=== PATIENT | male | born 1960 | race Caucasian/White ===

== ENCOUNTER 2021-04-30 17:02 | Emergency (ER) | payer BC ==
[2021-04-30 17:11] VITALS: BP 120/80; PULSE 94; RESP 17; TEMP 97.8
[2021-04-30] MEDS ORDERED: methylPREDNISolone SOD SUCCI 125 MG/2 ML VIAL IM STA (18:23)
--- NOTE | 2021-04-30 18:52 | ED ---
Allergic Reaction HPI - General Chief complaint: Allergic Reaction Stated complaint: bee sting Time Seen by Provider: 04/30/21 18:13 Source: patient, RN notes reviewed Mode of arrival: ambulatory Limitations: no limitations - History of Present Illness Initial Comments: Patient is a 60-year-old male presents to emergency department with a bee sting to the left lower leg. He notes that he's not sure if he is ALLERGIC but he did swell up and started getting hives up his legs. He notes that he did take 59 g Benadryl at home and symptoms have improved since arrival. He notes that the itching and swelling and hives have gone down. He was a well-appearing 60-year-old male in no apparent distress or pain. He denied any other symptoms or complaints. He denied any shortness of breath difficulty breathing throat tightness. - Related Data Allergies Allergy/AdvReac Type Severity Reaction Status Date / Time bee venom protein (honey bee) Allergy Rash/Hives Verified 04/30/21 17:11 Review of Systems ROS Statement: Those systems with pertinent positive or pertinent negative responses have been documented in the HPI. ROS Other: All systems not noted in ROS Statement are negative. Past Medical History Past Medical History: Hyperlipidemia, Hypertension History of Any Multi-Drug Resistant Organisms: None Reported Past Surgical History: Hernia Repair Past Psychological History: No Psychological Hx Reported Smoking Status: Never smoker Past Alcohol Use History: Rare Past Drug Use History: None Reported General Exam Limitations: no limitations General appearance: alert, in no apparent distress Head exam: Present: atraumatic, normocephalic, normal inspection Eye exam: Present: normal appearance, PERRL, EOMI. Absent: scleral icterus, conjunctival injection, periorbital swelling Neck exam: Present: normal inspection Respiratory exam: Present: normal lung sounds bilaterally. Absent: respiratory distress, wheezes, rales, rhonchi, stridor Cardiovascular Exam: Present: regular rate, normal rhythm, normal heart sounds. Absent: systolic murmur, diastolic murmur, rubs, gallop, clicks Extremities exam: Present: normal inspection, full ROM, normal capillary refill. Absent: tenderness, pedal edema, joint swelling, calf tenderness Neurological exam: Present: alert, oriented X3 Psychiatric exam: Present: normal affect, normal mood Skin exam: Present: warm, dry, intact, normal color, urticaria (Bilateral lower extremities.). Absent: rash Course Vital Signs 04/30/21 17:07 Temperature 97.8 F Pulse Rate 94 Respiratory 17 Rate Blood Pressure 120/80 O2 Sat by Pulse 100 Oximetry Medical Decision Making - Medical Decision Making 60-year-old male with a bee sting to left lower extremity. Patient admits that he took Benadryl at home prior to arrival. 125 mg of Solu-Medrol ordered. he was informed that he should talk to his primary care about potentially getting a prescription for EpiPen. Case discussed with Dr. Ashford, patient can discharge home with follow-up to primary care. Disposition Clinical Impression: Allergic reaction, Bee sting Disposition: HOME SELF-CARE Condition: Stable Instructions (If sedation given, give patient instructions): Insect Bite or Sting (ED) Additional Instructions: Please return to the Emergency Department if symptoms worsen or any other concerns. Continue take Benadryl as directed on the box. Follow-up primary care in the next 1-2 days. Is patient prescribed a controlled substance at d/c from ED?: No Referrals: Miguelangel Vela MD [Primary Care Provider] - 1-2 days Time of Disposition: 19:10
== END 2021-04-30 19:27 | disposition home or self-care (01) ==
LOC: EC 17:02
DX: T63.441A Toxic effect of venom of bees, accidental (unintentional), initial encounter (principal); T45.0X5A Adverse effect of antiallergic and antiemetic drugs, initial encounter; I10 Essential (primary) hypertension; E78.5 Hyperlipidemia, unspecified
CPT/HCPCS: 99283; J2930; 96372